=== PATIENT | female | born 1940 | race Caucasian/White ===

== ENCOUNTER → 2018-12-15 | Emergency (ER) | payer OTHER ==
[~2018-12-15] VITALS: Ht 157.5 cm; Wt 68.0 kg
[~2018-12-15] MED LIST: ANASPAZ0.125 MG; BIOTIN500 MCG; CELEXA10 MG; CLONAZEPAM2 M1; COREG CR10 MG; HYZAAR 100-251 UDTAB; KLONOPIN0.5 MG/TAB; NEURONTIN300 MG; PEPCID40 MG; SYNTHROID75 MCG; SYNTHROID88 MCG
== END | disposition designated cancer center or children's hospital (05) ==
LOC: ER 16:58
DX: S06.5X0A Traumatic subdural hemorrhage without loss of consciousness, initial encounter (principal); S05.12XA Contusion of eyeball and orbital tissues, left eye, initial encounter; R40.2412 Glasgow coma scale score 13-15, at arrival to emergency department; R53.1 Weakness; W18.09XA Striking against other object with subsequent fall, initial encounter; Y93.89 Activity, other specified; Y92.89 Other specified places as the place of occurrence of the external cause; Y99.8 Other external cause status